=== PATIENT | male | born 1945 | race Two or more races ===

== ENCOUNTER 2019-04-01 10:45 | Emergency (ER) | payer SELFPAY ==
--- NOTE | 2019-04-01 11:32 | ED ---
Respiratory - HPI Summary HPI Summary: Pt is a 74 y/o M presenting to the ED with a chief respiratory complaint. Via disaster or damage control specialist (ID [id number]), pt states hes been coughing up copious amounts of phlegm over the past four days. Hes also developed a low fever, and reports shortness of breath. He did not receive his flu shot this year. He is in stage III renal disease. Patient denies CP except when coughing. Also has sick grandchild. - History of Current Complaint Chief Complaint: EDUpperRespComplaint Stated Complaint: FEVER 102F/COUGH PER DAUGHTER Time Seen by Provider: 04/01/19 10:57 Hx Obtained From: Patient, Family/Manager Athletics, Glue Drier Operator Onset/Duration: Gradual Onset, Lasting Days, Still Present Timing: Constant Initial Severity: Moderate Current Severity: Severe Pain Intensity: 10 Character: Cough (Productive), Dyspnea at Rest Sputum Amount: Copious Aggravating Factor(s): Nothing Alleviating Factor(s): Nothing Associated Signs and Symptoms: Fever, SOB - Allergy/Home Medications Allergies/Adverse Reactions: Allergies Allergy/AdvReac Type Severity Reaction Status Date / Time No Known Allergies Allergy Verified 04/01/19 10:56 PMH/Surg Hx/FS Hx/Imm Hx Previously Healthy: Yes Endocrine/Hematology History: Denies: Hx Diabetes History: Reports: Hx Renal Disease Infectious Disease History: No Infectious Disease History: Reports: Traveled Outside the [place] in Last 30 Days - 03/11 - Family History Known Family History: Negative: Respiratory Disease - Social History Alcohol Use: None Hx Substance Use: No Substance Use Type: Reports: None Hx Tobacco Use: No Smoking Status (MU): Never Smoked Tobacco Review of Systems Positive: Fever Positive: Shortness Of Breath, Cough All Other Systems Reviewed And Are Negative: Yes Physical Exam - Summary Physical Exam Summary: Constitutional: Well-developed, Well-nourished, Alert. (-) Distressed Skin: Warm, Dry HENT: Normocephalic; Atraumatic Eyes: Conjunctiva normal Neck: Musculoskeletal ROM normal neck. (-) JVD, (-) Stridor, (-) Nuchal rigidity Cardio: Rhythm regular, rate normal, Heart sounds normal; Intact distal pulses; Radial pulses are 2+ and symmetric. (-) Murmur Pulmonary/Chest wall: Wet cough, bibasilar rhonchi Abd: Soft, (-) tenderness, (-) Distension, (-) Guarding, (-) Rebound Musculoskeletal: (-) Edema Lymph: (-) Cervical adenopathy Neuro: Alert, Oriented x3 Psych: Mood and affect Normal Triage Information Reviewed: Yes Vital Signs On Initial Exam: Initial Vitals Temp Pulse Resp BP Pulse Ox 99.5 F 90 16 141/76 94 04/01/19 10:53 04/01/19 10:53 04/01/19 10:53 04/01/19 10:53 04/01/19 10:53 Vital Signs Reviewed: Yes Procedures - Sedation Patient Received Moderate/Deep Sedation with Procedure: No Diagnostics - Vital Signs Vital Signs Temp Pulse Resp BP Pulse Ox 04/01/19 10:53 99.5 F 90 16 141/76 94 - Laboratory Result Diagrams: 04/01/19 11:25 04/01/19 11:25 Lab Statement: Any lab studies that have been ordered have been reviewed, and results considered in the medical decision making process. - Radiology CXR Radiology Interpretation Completed By: Radiologist Summary of Radiographic Findings: No active cardiopulmonary disease is noted. ED physician has reviewed this report. - CT Chest CT CT Interpretation Completed By: Radiologist Summary of CT Findings: Pleural parenchymal scarring in the lung apices. Nodular densities are noted in the right upper lobe medially and laterally. Additional nodular density is noted in the left lung base. Although this is in the spectrum of inflammatory or scarring cannot totally exclude neoplastic process. ED physician has reviewed this report. - EKG 1133 Cardiac Rate: NL - 81bpm EKG Rhythm: Sinus Rhythm ST Segment: Normal Ectopy: None Summary of EKG Findings: An EKG at 1133 reveals normal sinus rhythm 81bpm, nml axis, nml intervals. No STEMI. No acute changes. No prior for comparison. ED physician has reviewed and interpreted this EKG. Disposition - Course Course Of Treatment: 74-year-old male with a history of COPD presents with fever , upper respiratory symptoms and cough. - afebrile here, lungs mild rhonchi. Chest x-ray that pneumonia. No leukocytosis on labs. Discussed with daughter who would like to do a CT chest. Patient does have a history of TB. CT chest shows apical scarring as well as some nodules which are consistent with inflammatory process. Patient given Tessalon Perles, albuterol as needed at home to help with his cough. Advised to follow-up with his primary care doctor regarding nodules. O2 sat noted to be 93%, no prior. - Diagnoses Provider Diagnoses: URI (upper respiratory infection) Discharge ED - Sign-Out/Discharge Documenting (check all that apply): Patient Departure - Discharge Plan Condition: Stable Disposition: HOME Prescriptions: Albuterol HFA INHALER* [Ventolin HFA Inhaler*] 2 puff INH Q4H PRN 30 Days #1 mdi PRN Reason: Wheezing Benzonatate CAP* [Tessalon 100 MG CAP*] 100 mg PO TID PRN 8 Days #24 cap PRN Reason: Cough Patient Education Materials: Upper Respiratory Infection (ED) Referrals: Jasmyne Hansen MD [Primary Care Provider] - Additional Instructions: You were seen in the emergency department for cough and fever. Your x-ray did not show any evidence of pneumonia. Your CT scan showed some nodules in her lungs for which you should follow-up with her primary care doctor. Please follow up with your primary care doctor in next 2-3 days and return to emergency department for told breathing, continued fevers, chest pain, worsening or concerning symptoms. It was a pleasure taking care of you today. - Billing Disposition and Condition Condition: STABLE Disposition: Home - Attestation Statements Document Initiated by Lucila: Yes Documenting Scribe: Rocio Alonso Provider For Whom Lucila is Documenting (Include Credential): Lesli Rios MD. Scribe Attestation: Rocio Moore, gwendolyned for Lesli Rios MD. on 04/01/19 at 1745. Scribe Documentation Reviewed: Yes Provider Attestation: The documentation as recorded by the Rocio tamayo accurately reflects the service I personally performed and the decisions made by , Lesli Rios MD. Status of Scribe Document: Viewed
[2019-04-01 11:34] LABS: ABS Eosinophils 0.1 10^3/ul (0-0.6); ABS Lymphocytes 0.7 10^3/ul (1.0-4.8); ABS Monocytes 0.7 10^3/ul (0-0.8); ABS Neutrophils 6.8 10^3/ul (1.5-7.7); Eosinophil % 0.6 %; Hematocrit 32 % (42-52); Hemoglobin 10.9 g/dL (14.0-18.0); Lymphocyte % 8.7 %; Mean Corpuscular HGB Conc 35 g/dL (31-36); Mean Corpuscular Hemoglobin 30 pg (27-31); Mean Corpuscular Volume 87 fL (80-94); Mean Platelet Volume 6.9 fL (7.4-10.4); Platelet Count 290 10^3/uL (150-450); Red Blood Count 3.61 10^6 /uL (4.18-5.48); Red Cell Distribution Width 16 % (10-15); White Blood Count 8.3 10^3/uL (3.5-10.8)
[2019-04-01 11:50] LABS: Influenza A Molecular NEGATIVE (Negative); Influenza B Molecular NEGATIVE (Negative)
[2019-04-01 11:51] LABS: Albumin 2.6 g/dL (3.2-5.2); BUN/Creatinine Ratio 25.8 (8-20); Calcium 8.4 mg/dL (8.6-10.3); EGFR African American 45.7 (>60); EGFR Non-African American 37.8 (>60); Globulin 2.6 g/dL (2-4); Total Bilirubin 0.5 mg/dL (0.2-1.0); Total Protein 5.2 g/dL (6.4-8.9)
[2019-04-01 14:35] VITALS: BP 134/71
== END 2019-04-01 14:33 | disposition home or self-care (01) ==
LOC: ED 10:45
DX: J06.9 Acute upper respiratory infection, unspecified (principal); N18.3 Chronic kidney disease, stage 3 (moderate); J44.9 Chronic obstructive pulmonary disease, unspecified
CPT/HCPCS: 36415; 71046; 71250; 80053; 85025; 93005; 99284

== ENCOUNTER 2019-04-04 16:56 | Emergency (ER) | payer SELFPAY ==
[2019-04-04 17:13] VITALS: BP 151/74
[2019-04-04] MEDS ORDERED: Albuterol/Ipratropium NEB.SOL* Albuterol 2.5 MG/Ipratropium 0.5 MG 3 ML INH ONE ×2 (17:20→18:00)
--- NOTE | 2019-04-04 17:57 | UC ---
Respiratory Complaint HPI - HPI Summary HPI Summary: 74-year-old male who has had cough for approximately 5 days. He had a high fever for 103 and went to the emergency room on Tuesday. Chest x-ray was done which was negative for infiltrate. He is on low-dose prednisone 10 mg daily last week and 5 mg daily this week because of renal disease. He was given an inhaler and he has been using that. Tonight he has more wheezing and moist cough. His daughter wanted him to be checked because her daughter was just diagnosed with pneumonia. Today he has started experiencing some right ear pain. - History of Current Complaint Chief Complaint: UCRespiratory Stated Complaint: COUGH Time Seen by Provider: 04/04/19 17:14 Hx Obtained From: Patient, Family/Locomotive Engineer Diesel - The daughter is acting as the interpreter translator for the patient who speaks Maltese. Onset/Duration: Gradual Onset Timing: Constant Severity Initially: Moderate Severity Currently: Mild Pain Intensity: 9 Character: Cough: Nonproductive - Moist cough Aggravating Factors: Exertion, Deep Breaths Alleviating Factors: Bronchodilator - The albuterol inhaler has been helping mildly. He was also given benzonatate in the emergency room. Associated Signs And Symptoms: Positive: Fever - He had a fever as high as 103 over the weekend., Wheezing - Today he has continued wheezing., URI, Nasal Congestion - Allergies/Home Medications Allergies/Adverse Reactions: Allergies Allergy/AdvReac Type Severity Reaction Status Date / Time No Known Allergies Allergy Verified 04/04/19 17:13 Home Medications: Home Medications Acetaminophen TAB* [Tylenol TAB*] 500 mg PO Q4H PRN 04/04/19 [History Confirmed 04/04/19] PMH/Surg Hx/FS Hx/Imm Hx Previously Healthy: Yes GI/ History: Renal Disease - Recently diagnosed with renal disease. - Surgical History Surgical History: Yes Surgery Procedure, Year, and Place: lung surgery - Family History Known Family History: Negative: Respiratory Disease - Social History Alcohol Use: None Substance Use Type: None Smoking Status (MU): Former Smoker When Did the Patient Quit Smoking/Using Tobacco: [id number] Review of Systems All Other Systems Reviewed And Are Negative: Yes Constitutional: Positive: Fever, Chills - Fever and chills over the weekend when he was seen in the emergency room. ENT: Positive: Ear Ache - Patient has complained of right earache today Respiratory: Positive: Cough - Moist cough with wheezing today Is Patient Immunocompromised?: No Physical Exam Triage Information Reviewed: Yes Appearance: Well-Appearing, No Pain Distress, Well-Nourished Vital Signs: Initial Vital Signs Temp 99.4 F 04/04/19 17:07 Pulse 93 04/04/19 17:07 Resp 18 04/04/19 17:07 BP 151/74 04/04/19 17:07 Pulse Ox 94 04/04/19 17:07 Vital Signs Reviewed: Yes Eyes: Positive: Conjunctiva Clear ENT: Positive: Hearing grossly normal, Pharynx normal, TM red - Left tympanic membrane unable to visualize because of cerumen in ear canal. Right tympanic membrane is erythematous with mild bulging and poor landmarks., Uvula midline Neck: Positive: Supple, Nontender, No Lymphadenopathy Respiratory: Positive: No respiratory distress, No accessory muscle use, Rhonchi , Wheezing - Scattered rhonchi and wheezing throughout, no distress. Cardiovascular: Positive: RRR, No Murmur, Pulses Normal, Brisk Capillary Refill Musculoskeletal: Positive: Strength Intact, ROM Intact, Other: - Patient has bilateral pedal and ankle edema which is chronic for this patient. Neurological: Positive: Alert Psychological Exam: Normal Skin Exam: Normal Respiratory Course/Dx - Course Course Of Treatment: The patient just had a chest x-ray 3 days ago which was negative. He had been placed on an albuterol inhaler, he is also on low-dose prednisone because of his renal disease of 5 mg daily. Last week he was on 10 mg daily. I want him to continue all these medications however I am going to add Augmentin for the right otitis media and did adjust it because of his renal impairment. The patient had a DuoNeb treatment here and he stated that he was feeling like he was moving better air. His lungs were much improved with only mild wheezing with forced expiration and no rhonchi. He continues to have a moist cough but no distress. He requested another DuoNeb treatment. He feels much better following that and has almost complete clearing of his lung steele, he even appears like he is feeling better. - Differential Dx/Diagnosis Provider Diagnosis: Right otitis media, Bronchitis Discharge ED - Sign-Out/Discharge Documenting (check all that apply): Patient Departure All imaging exams completed and their final reports reviewed: No Studies - Discharge Plan Condition: Fair Disposition: HOME Prescriptions: Amoxicillin/Clavulanate TAB* [Augmentin TAB 500 mg*] 500 mg PO BID 10 Days #20 tab Patient Education Materials: Ear Infection (ED) Referrals: Jasmyne Hansen MD [Primary Care Provider] - Additional Instructions: Continue using your albuterol inhaler 2 puffs every 4 hours as needed for wheezing. Contact your primary care provider and advised them that you have been started on Augmentin 500 mg twice a day for 10 days for a right ear infection. Follow-up with your primary care provider on Tuesday for a recheck if no improvement, if any worsening symptoms coming into the weekend then go to the emergency room. - Billing Disposition and Condition Condition: FAIR Disposition: Home
== END 2019-04-04 18:18 | disposition home or self-care (01) ==
LOC: UCEAST 16:56
DX: H66.91 Otitis media, unspecified, right ear (principal); J40 Bronchitis, not specified as acute or chronic; Z87.891 Personal history of nicotine dependence
CPT/HCPCS: 99213; A9270-GY; G0463

== ENCOUNTER 2019-07-22 10:14 | Inpatient (IN) | payer SELFPAY ==
[2019-07-22] MEDS ORDERED: NS 0.9% 1000 ml BAG 1,000 ML IV ONE ×2 (10:28→14:20)
[2019-07-22] MEDS ORDERED: Ondansetron 4 mg VIAL 2 MG/ML 2 ml VIAL IV ONE (11:30)
[2019-07-22] MEDS ORDERED: Morphine 4 MG/ML VIAL (1 ml) IV ONE (11:30)
[2019-07-22 11:47] LABS: ABS Eosinophils 0.6 10^3/ul (0-0.6); ABS Lymphocytes 1.5 10^3/ul (1.0-4.8); ABS Monocytes 0.4 10^3/ul (0-0.8); Eosinophil % 10.8 %; Hematocrit 34 % (42-52); Hemoglobin 11.3 g/dL (14.0-18.0); Lymphocyte % 27.1 %; Mean Corpuscular HGB Conc 33 g/dL (31-36); Mean Corpuscular Hemoglobin 28 pg (27-31); Mean Corpuscular Volume 85 fL (80-94); Mean Platelet Volume 7.2 fL (7.4-10.4); Platelet Count 264 10^3/uL (150-450); Red Blood Count 4.02 10^6 /uL (4.18-5.48); Red Cell Distribution Width 16 % (10-15); White Blood Count 5.6 10^3/uL (3.5-10.8)
[2019-07-22 11:51] LABS: Urine Appearance Clear; Urine Bilirubin Negative (Negative); Urine Blood Negative (Negative); Urine Color Straw; Urine Glucose Negative (Negative); Urine Ketones Negative (Negative); Urine Nitrite Negative (Negative); Urine Protein 2+(100 mg/dL) (Negative); Urine Specific Gravity 1.011 (1.010-1.030); Urine Urobilinogen Negative (Negative)
[2019-07-22 11:54] LABS: Urine Bacteria Absent (Absent); Urine Red Blood Cell Trace(0-2/hpf) (Absent); Urine White Blood Cell Trace(0-5/hpf) (Absent)
[2019-07-22 12:06] LABS: Albumin 3.2 g/dL (3.2-5.2); Albumin/Globulin Ratio 1.2 (1-3); BUN/Creatinine Ratio 21.4 (8-20); C Reactive Protein 13.13 mg/L (<8.01); Calcium 8.8 mg/dL (8.6-10.3); EGFR African American 44.5 (>60); EGFR Non-African American 36.8 (>60); Globulin 2.6 g/dL (2-4); Potassium 4.3 mmol/L (3.5-5.0); Total Bilirubin 0.4 mg/dL (0.2-1.0); Total Protein 5.8 g/dL (6.4-8.9)
[2019-07-22] MEDS ORDERED: metroNIDAZOLE IV 500 MG/100ML 500 MG/100 ML BAG IVPB ONE (14:23)
[2019-07-22] MEDS ORDERED: cefTRIAXone ADVAN VIAL 1 GM in NS 0.9% 50 ML 50 ML IVPB ONE (14:23)
[2019-07-22 15:07] LABS: Activated Partial Thrombo Time 36.2 seconds (26.0-38.0); INR 0.94 (0.82-1.09)
[2019-07-22 15:23] LABS: Troponin I 0.01 ng/mL (<0.03)
[2019-07-22] MEDS ORDERED: Prochlorperazine 5 mg/ml 2 ml VIAL (10 mg) IV PRN (16:02)
[2019-07-22] MEDS: NS 0.9% 1000 ml BAG 1,000 ML IV SCH (17:53)
[2019-07-22] MEDS: Heparin 5000 UNITS/ML VIAL(*) 1 ml vial SUBCUT SCH (21:10)
[2019-07-22] MEDS: metroNIDAZOLE IV 500 MG/100ML 500 MG/100 ML BAG IVPB SCH (21:11)
[2019-07-23] MEDS: Morphine 2 MG/ML SYRINGE IV PRN ×2 (00:22→07:28)
[2019-07-23] MEDS: metroNIDAZOLE IV 500 MG/100ML 500 MG/100 ML BAG IVPB SCH ×3 (05:35→21:19)
[2019-07-23] MEDS: Heparin 5000 UNITS/ML VIAL(*) 1 ml vial SUBCUT SCH ×3 (05:36→21:25)
[2019-07-23 06:50] LABS: ABS Eosinophils 0.6 10^3/ul (0-0.6); ABS Lymphocytes 1.2 10^3/ul (1.0-4.8); ABS Monocytes 0.3 10^3/ul (0-0.8); Eosinophil % 15.7 %; Hematocrit 28 % (42-52); Hemoglobin 9.7 g/dL (14.0-18.0); Mean Corpuscular HGB Conc 34 g/dL (31-36); Mean Corpuscular Hemoglobin 29 pg (27-31); Mean Corpuscular Volume 84 fL (80-94); Mean Platelet Volume 7.4 fL (7.4-10.4); Platelet Count 236 10^3/uL (150-450); Red Blood Count 3.39 10^6 /uL (4.18-5.48); Red Cell Distribution Width 16 % (10-15)
[2019-07-23 07:04] LABS: Albumin 2.5 g/dL (3.2-5.2); Albumin/Globulin Ratio 1.1 (1-3); BUN/Creatinine Ratio 16.7 (8-20); C Reactive Protein 19.52 mg/L (<8.01); Calcium 7.6 mg/dL (8.6-10.3); EGFR African American 50.9 (>60); EGFR Non-African American 42.1 (>60); Globulin 2.3 g/dL (2-4); Potassium 3.9 mmol/L (3.5-5.0); Total Bilirubin 0.4 mg/dL (0.2-1.0); Total Protein 4.8 g/dL (6.4-8.9)
[2019-07-23] MEDS: NS 0.9% 1000 ml BAG 1,000 ML IV SCH (07:28)
[2019-07-23] MEDS ORDERED: cefTRIAXone ADVAN VIAL 1 GM in NS 0.9% 50 ML 50 ML IVPB SCH (16:00)
[2019-07-23] MEDS ORDERED: NS 0.9% 1000 ml BAG 1,000 ML IV SCH (19:15)
[2019-07-24] MEDS: metroNIDAZOLE IV 500 MG/100ML 500 MG/100 ML BAG IVPB SCH (05:35)
[2019-07-24] MEDS ORDERED: Buffered Lidocaine 1% SYRIN 1 ml INTRADERM ONE (06:00)
[2019-07-24] MEDS ORDERED: Famotidine IV 10 MG/ML 2 ml VIAL (20 mg) IV ONE (06:00)
[2019-07-24 06:23] LABS: ABS Eosinophils 0.6 10^3/ul (0-0.6); ABS Lymphocytes 1.2 10^3/ul (1.0-4.8); ABS Monocytes 0.3 10^3/ul (0-0.8); Eosinophil % 15.3 %; Hematocrit 30 % (42-52); Lymphocyte % 29.8 %; Mean Corpuscular HGB Conc 34 g/dL (31-36); Mean Corpuscular Hemoglobin 28 pg (27-31); Mean Corpuscular Volume 84 fL (80-94); Mean Platelet Volume 7.3 fL (7.4-10.4); Nucleated Red Blood Cells % 0.2; Platelet Count 252 10^3/uL (150-450); Red Blood Count 3.53 10^6 /uL (4.18-5.48); Red Cell Distribution Width 15 % (10-15); White Blood Count 4.2 10^3/uL (3.5-10.8)
[2019-07-24 06:29] LABS: INR 1.06 (0.82-1.09)
[2019-07-24 06:38] LABS: BUN/Creatinine Ratio 13.1 (8-20); Calcium 8.2 mg/dL (8.6-10.3); EGFR African American 51.7 (>60); EGFR Non-African American 42.7 (>60); Potassium 3.7 mmol/L (3.5-5.0)
[2019-07-24] MEDS ORDERED: HYDROmorphone 1 MG/1 ML SYRINGE IV PRN (07:56)
[2019-07-24] MEDS ORDERED: Ondansetron 4 mg VIAL 2 MG/ML 2 ml VIAL IV PRN (07:56)
[2019-07-24] MEDS ORDERED: DiMENhydriNATE IV 50 mg/ml 1 ml VIAL IV PUSH PRN (07:56)
[2019-07-24] MEDS ORDERED: Naloxone 0.4 mg VIAL 0.4 mg/ml 1 ml VIAL IV PRN (07:56)
[2019-07-24] MEDS ORDERED: fentaNYL 100 mcg/2 ml 50 MCG/ML VIAL IV PRN (07:56)
[2019-07-24] MEDS ORDERED: Bupivacaine 0.25% EPI 200,000 30 ML SDV ONE (08:41)
[2019-07-24] MEDS ORDERED: Ondansetron ODT 4 mg TAB 4 MG TAB ONE (09:16)
[2019-07-24] MEDS ORDERED: Famotidine IV 10 MG/ML 2 ml VIAL (20 mg) ONE (09:16)
[2019-07-24] MEDS ORDERED: Midazolam 2 mg/2 ml VIAL 1 mg/ml 2 ml VIAL (2 mg) ONE (09:37)
[2019-07-24] MEDS ORDERED: fentaNYL 100 mcg/2 ml 50 MCG/ML VIAL ONE ×2 (09:37→12:10)
[2019-07-24] MEDS ORDERED: Ketamine HCL 50 mg/ml 10 ml VIAL (500 MG) ONE (09:37)
[2019-07-24] MEDS ORDERED: Rocuronium 50 mg VIAL 10 mg/ml 5 ml VIAL (50 mg) ONE (09:39)
[2019-07-24] MEDS ORDERED: Sugammadex 500 MG/5 ML 5 ml VIAL IV PUSH ONE (09:39)
[2019-07-24] MEDS ORDERED: ceFAZolin 2 GM PREMIX in ORs 2 GM/50 ML BAG (FOR ORs ONLY) ONE (09:48)
[2019-07-24] MEDS ORDERED: Acetaminophen IV 1 GM/100ML 100 ML ONE (10:35)
[2019-07-24] MEDS ORDERED: Lidocaine 2% PF 5 ML VIAL ONE (10:35)
[2019-07-24] MEDS ORDERED: Propofol 10 MG/ML 20 ML BTL ONE (10:35)
[2019-07-24] MEDS ORDERED: HYDROmorphone 1 MG/1 ML SYRINGE ONE (10:35)
[2019-07-24] MEDS ORDERED: EPHEDrine (Pressors) 50 MG/ML VIAL ONE (10:35)
[2019-07-24] MEDS ORDERED: Metoprolol Tartrate 5 mg VIAL 5 ml VIAL (1 mg/ml) ONE (11:08)
[2019-07-24] MEDS ORDERED: Ondansetron 4 mg VIAL 2 MG/ML 2 ml VIAL ONE (12:48)
[2019-07-24 14:46] VITALS: BP 116/64
== END 2019-07-24 14:30 | disposition home or self-care (01) | DRG 418 ==
LOC: ED 10:14 → SSU 14:41 → OBSVTOIN 07-23 15:41
PROVIDERS: ADMIT Internal Medicine; ATTEND Internal Medicine

== ENCOUNTER 2021-09-12 08:00 | Observation (INO) ==
[2021-09-12 08:28] LABS: ABS Eosinophils 0.5 10^3/ul (0-0.6); ABS Lymphocytes 1.4 10^3/ul (1.0-4.8); ABS Monocytes 0.3 10^3/ul (0-0.8); ABS Neutrophils 2.4 10^3/ul (1.5-7.7); Eosinophil % 10.3 %; Hematocrit 30 % (42-52); Hemoglobin 9.7 g/dL (14.0-18.0); Lymphocyte % 29.8 %; Mean Corpuscular HGB Conc 33 g/dL (31-36); Mean Corpuscular Hemoglobin 28 pg (27-31); Mean Corpuscular Volume 86 fL (80-94); Mean Platelet Volume 7.3 fL (7.4-10.4); Nucleated Red Blood Cells % 0.1; Platelet Count 288 10^3/uL (150-450); Red Blood Count 3.44 10^6 /uL (4.18-5.48); Red Cell Distribution Width 15 % (10-15); White Blood Count 4.5 10^3/uL (3.5-10.8)
[2021-09-12 08:36] LABS: INR 0.99 (0.86-1.15)
[2021-09-12 09:27] LABS: Albumin 3.3 g/dL (3.2-5.2); Albumin/Globulin Ratio 1.3 (1-3); Calcium 8.7 mg/dL (8.6-10.3); Globulin 2.5 g/dL (2-4); Total Bilirubin 0.4 mg/dL (0.2-1.0); Total Protein 5.8 g/dL (6.4-8.9); eGFR CKD-EPI 11.5 (>60)
[2021-09-12 09:59] LABS: High Sensitivity Troponin 1 Hr 7 pg/mL (<20)
[2021-09-12] MEDS ORDERED: Al Hydrox/Mg Hydrox/Simet LIQ 30 ML UDC PO ONE (12:04)
[2021-09-12] MEDS ORDERED: Al Hydrox/Mg Hydrox/Simet LIQ 30 ML UDC PO PRN (15:06)
[2021-09-12] MEDS: Heparin 5000 UNITS/ML 1 mL VIAL SUBCUT SCH (20:28)
[2021-09-13 06:38] LABS: ABS Eosinophils 0.4 10^3/ul (0-0.6); ABS Lymphocytes 1.3 10^3/ul (1.0-4.8); ABS Monocytes 0.3 10^3/ul (0-0.8); ABS Neutrophils 1.7 10^3/ul (1.5-7.7); Eosinophil % 10.6 %; Hematocrit 26 % (42-52); Hemoglobin 8.8 g/dL (14.0-18.0); Lymphocyte % 36.4 %; Mean Corpuscular HGB Conc 34 g/dL (31-36); Mean Corpuscular Hemoglobin 29 pg (27-31); Mean Corpuscular Volume 86 fL (80-94); Mean Platelet Volume 7.5 fL (7.4-10.4); Platelet Count 253 10^3/uL (150-450); Red Blood Count 3.04 10^6 /uL (4.18-5.48); Red Cell Distribution Width 15 % (10-15); White Blood Count 3.7 10^3/uL (3.5-10.8)
[2021-09-13 07:17] LABS: Calcium 7.9 mg/dL (8.6-10.3); HDL Cholesterol 34.9 mg/dL; Potassium 4.2 mmol/L (3.5-5.0); eGFR CKD-EPI 11.1 (>60)
[2021-09-13] MEDS: Potassium Chlor 20 meq TAB.ER PO SCH (09:56)
[2021-09-13] MEDS: Heparin 5000 UNITS/ML 1 mL VIAL SUBCUT SCH ×2 (09:58→21:00)
[2021-09-14 09:33] LABS: Phosphorus 5.6 mg/dL (2.5-5.0)
[2021-09-14] MEDS: Heparin 5000 UNITS/ML 1 mL VIAL SUBCUT SCH (11:52)
[2021-09-14] MEDS: Potassium Chlor 20 meq TAB.ER PO SCH (11:53)
[2021-09-14] MEDS ORDERED: Regadenoson 0.4 MG/5 ML SYRINGE ONE (12:30)
[2021-09-14 12:34] VITALS: BP 132/54
== END 2021-09-14 16:25 | disposition home or self-care (01) ==
LOC: ED 08:00 → EDHOLD 08:00 → MEDTELE 16:40
PROVIDERS: ADMIT Student in an Organized Health Care Education/Training Program; ATTEND Student in an Organized Health Care Education/Training Program

== ENCOUNTER 2022-01-07 17:31 | Inpatient (IN) ==
[2022-01-07 20:26] LABS: ABS Eosinophils 0.4 10^3/ul (0-0.6); ABS Lymphocytes 1.1 10^3/ul (1.0-4.8); ABS Monocytes 0.4 10^3/ul (0-0.8); ABS Neutrophils 2.2 10^3/ul (1.5-7.7); Eosinophil % 8.6 %; Hematocrit 32 % (42-52); Hemoglobin 10.3 g/dL (14.0-18.0); Lymphocyte % 26.7 %; Mean Corpuscular HGB Conc 32 g/dL (31-36); Mean Corpuscular Hemoglobin 27 pg (27-31); Mean Corpuscular Volume 85 fL (80-94); Mean Platelet Volume 7.4 fL (7.4-10.4); Platelet Count 238 10^3/uL (150-450); Red Cell Distribution Width 16 % (10-15); White Blood Count 4.1 10^3/uL (3.5-10.8)
[2022-01-07 20:38] LABS: Activated Partial Thrombo Time 34.7 seconds (26.0-38.0); INR 0.93 (0.89-1.11)
[2022-01-07 21:17] LABS: Albumin 3.5 g/dL (3.2-5.2); Albumin/Globulin Ratio 1.3 (1-3); C Reactive Protein 2.39 mg/L (<8.01); Calcium 8.4 mg/dL (8.6-10.3); Globulin 2.7 g/dL (2-4); Magnesium 2.7 mg/dL (1.9-2.7); Total Bilirubin 0.3 mg/dL (0.2-1.0); Total Protein 6.2 g/dL (6.4-8.9); eGFR CKD-EPI 7.4 (>60)
[2022-01-08] MEDS ORDERED: Potassium Chlor 20 meq TAB.ER PO ONE (01:32)
[2022-01-08 07:10] LABS: Hepatitis B Surface Antigen Nonreactive (Nonreactive)
[2022-01-08 07:15] LABS: Hepatitis B Core IgM Nonreactive (Nonreactive)
[2022-01-08 07:27] LABS: Hepatitis B Surface Ab Immune (Immune)
[2022-01-08 08:11] LABS: ABS Eosinophils 0.5 10^3/ul (0-0.6); ABS Lymphocytes 0.9 10^3/ul (1.0-4.8); ABS Monocytes 0.3 10^3/ul (0-0.8); ABS Neutrophils 2.3 10^3/ul (1.5-7.7); Eosinophil % 11.5 %; Hematocrit 30 % (42-52); Hemoglobin 9.9 g/dL (14.0-18.0); Lymphocyte % 21.9 %; Mean Corpuscular HGB Conc 33 g/dL (31-36); Mean Corpuscular Hemoglobin 28 pg (27-31); Mean Corpuscular Volume 84 fL (80-94); Mean Platelet Volume 7.8 fL (7.4-10.4); Nucleated Red Blood Cells % 0.1; Platelet Count 247 10^3/uL (150-450); Red Blood Count 3.58 10^6 /uL (4.18-5.48); Red Cell Distribution Width 16 % (10-15)
[2022-01-08] MEDS: Potassium Chlor 20 meq TAB.ER PO SCH ×2 (08:14→21:40)
[2022-01-08] MEDS: Enoxaparin 30 MG/0.3 ML SYR SUBCUT SCH (08:19)
[2022-01-08 08:50] LABS: Albumin 3.2 g/dL (3.2-5.2); Albumin/Globulin Ratio 1.3 (1-3); Calcium 8.5 mg/dL (8.6-10.3); Globulin 2.4 g/dL (2-4); Total Bilirubin 0.4 mg/dL (0.2-1.0); Total Protein 5.6 g/dL (6.4-8.9); eGFR CKD-EPI 7.5 (>60)
[2022-01-08] MEDS: Heparin 1,000 UNIT/ML 10 ml (10,000 UNITS) CATHLAB/DIALYSIS DIALYSIS ONE ×2 (11:04→12:05)
[2022-01-08 11:21] LABS: Hepatitis B Surface Antigen Nonreactive (Nonreactive)
[2022-01-09] MEDS: Enoxaparin 30 MG/0.3 ML SYR SUBCUT SCH (06:33)
[2022-01-09 07:21] LABS: Albumin/Globulin Ratio 1.4 (1-3); Calcium 8.2 mg/dL (8.6-10.3); Globulin 2.2 g/dL (2-4); Potassium 4.2 mmol/L (3.5-5.0); Total Bilirubin 0.3 mg/dL (0.2-1.0); Total Protein 5.2 g/dL (6.4-8.9); eGFR CKD-EPI 8.5 (>60)
[2022-01-09] MEDS: Potassium Chlor 20 meq TAB.ER PO SCH (09:36)
[2022-01-09] MEDS: Heparin 1,000 UNIT/ML 10 ml (10,000 UNITS) CATHLAB/DIALYSIS DIALYSIS ONE ×3 (13:05→15:10)
[2022-01-10] MEDS: Enoxaparin 30 MG/0.3 ML SYR SUBCUT SCH (05:49)
[2022-01-10 06:55] LABS: Hematocrit 28 % (42-52); Hemoglobin 9.3 g/dL (14.0-18.0); Mean Corpuscular HGB Conc 33 g/dL (31-36); Mean Corpuscular Hemoglobin 29 pg (27-31); Mean Corpuscular Volume 87 fL (80-94); Mean Platelet Volume 7.8 fL (7.4-10.4); Platelet Count 236 10^3/uL (150-450); Red Blood Count 3.25 10^6 /uL (4.18-5.48); Red Cell Distribution Width 16 % (10-15)
[2022-01-10 07:07] LABS: Calcium 8.4 mg/dL (8.6-10.3); Magnesium 2.1 mg/dL (1.9-2.7); Potassium 4.1 mmol/L (3.5-5.0); eGFR CKD-EPI 9.8 (>60)
[2022-01-10] MEDS ORDERED: Influenza vaccine *QUAD* *2022-23* 0.5 ML SYRINGE IM ONE (09:00)
[2022-01-11] MEDS: Enoxaparin 30 MG/0.3 ML SYR SUBCUT SCH (05:41)
[2022-01-11 06:24] LABS: Calcium 8.3 mg/dL (8.6-10.3); Potassium 3.5 mmol/L (3.5-5.0); eGFR CKD-EPI 8.2 (>60)
[2022-01-11] MEDS: Heparin 1,000 UNIT/ML 10 ml (10,000 UNITS) CATHLAB/DIALYSIS DIALYSIS SCH ×3 (07:20→09:25)
[2022-01-12] MEDS: Enoxaparin 30 MG/0.3 ML SYR SUBCUT SCH (06:33)
[2022-01-12 07:27] LABS: Calcium 8.7 mg/dL (8.6-10.3); Potassium 4.8 mmol/L (3.5-5.0); eGFR CKD-EPI 8.8 (>60)
[2022-01-12 10:53] LABS: Hematocrit 31 % (42-52); Hemoglobin 10.1 g/dL (14.0-18.0); Mean Corpuscular HGB Conc 32 g/dL (31-36); Mean Corpuscular Hemoglobin 28 pg (27-31); Mean Corpuscular Volume 85 fL (80-94); Mean Platelet Volume 7.7 fL (7.4-10.4); Platelet Count 277 10^3/uL (150-450); Red Blood Count 3.66 10^6 /uL (4.18-5.48); Red Cell Distribution Width 16 % (10-15); White Blood Count 6.3 10^3/uL (3.5-10.8)
[2022-01-13 05:11] LABS: ABS Eosinophils 0.5 10^3/ul (0-0.6); ABS Lymphocytes 1.6 10^3/ul (1.0-4.8); ABS Monocytes 0.6 10^3/ul (0-0.8); ABS Neutrophils 3.6 10^3/ul (1.5-7.7); Eosinophil % 8.5 %; Hematocrit 29 % (42-52); Hemoglobin 9.3 g/dL (14.0-18.0); Lymphocyte % 25.4 %; Mean Corpuscular HGB Conc 32 g/dL (31-36); Mean Corpuscular Hemoglobin 28 pg (27-31); Mean Corpuscular Volume 86 fL (80-94); Mean Platelet Volume 7.6 fL (7.4-10.4); Platelet Count 270 10^3/uL (150-450); Red Blood Count 3.34 10^6 /uL (4.18-5.48); Red Cell Distribution Width 16 % (10-15); White Blood Count 6.4 10^3/uL (3.5-10.8)
[2022-01-13 05:34] LABS: Albumin 3.2 g/dL (3.2-5.2); Albumin/Globulin Ratio 1.3 (1-3); Calcium 8.1 mg/dL (8.6-10.3); Globulin 2.4 g/dL (2-4); Potassium 4.6 mmol/L (3.5-5.0); Total Bilirubin 0.3 mg/dL (0.2-1.0); Total Protein 5.6 g/dL (6.4-8.9)
[2022-01-13] MEDS: Enoxaparin 30 MG/0.3 ML SYR SUBCUT SCH (05:36)
[2022-01-13] MEDS: Pentafluoroprop/Tetrafluoro 1 SPRAY TOP.SPRAY TOPICAL SCH (09:45)
[2022-01-13] MEDS: Heparin 1,000 UNIT/ML 10 ml (10,000 UNITS) CATHLAB/DIALYSIS DIALYSIS SCH ×4 (09:45→12:38)
[2022-01-14] MEDS: Enoxaparin 30 MG/0.3 ML SYR SUBCUT SCH (05:54)
[2022-01-14 06:23] LABS: Calcium 8.4 mg/dL (8.6-10.3); Magnesium 2.1 mg/dL (1.9-2.7); eGFR CKD-EPI 8.4 (>60)
[2022-01-14 06:27] LABS: Potassium 5.4 mmol/L (3.5-5.0)
[2022-01-14] MEDS ORDERED: SODIUM ZIRCONIUM CYCLOSILICATE 5 GM PACKET PO SCH (09:00)
[2022-01-14] MEDS ORDERED: SODIUM ZIRCONIUM CYCLOSILICATE 5 GM PACKET PO ONE ×2 (09:45→12:00)
[2022-01-14] MEDS ORDERED: Heparin 1,000 UNIT/ML 10 ml (10,000 UNITS) CATHLAB/DIALYSIS DIALYSIS ONE (16:00)
[2022-01-15] MEDS ORDERED: Calcium Carb (TUMS) 500 mg CHEW TAB PO ONE ×2 (01:00→09:40)
[2022-01-15] MEDS: Enoxaparin 30 MG/0.3 ML SYR SUBCUT SCH (05:49)
[2022-01-15 06:33] LABS: ABS Eosinophils 0.4 10^3/ul (0-0.6); ABS Lymphocytes 1.4 10^3/ul (1.0-4.8); ABS Monocytes 0.5 10^3/ul (0-0.8); ABS Neutrophils 3.2 10^3/ul (1.5-7.7); Eosinophil % 7.2 %; Hematocrit 26 % (42-52); Hemoglobin 8.6 g/dL (14.0-18.0); Lymphocyte % 25.3 %; Mean Corpuscular HGB Conc 33 g/dL (31-36); Mean Corpuscular Hemoglobin 28 pg (27-31); Mean Corpuscular Volume 85 fL (80-94); Mean Platelet Volume 7.6 fL (7.4-10.4); Platelet Count 266 10^3/uL (150-450); Red Blood Count 3.07 10^6 /uL (4.18-5.48); Red Cell Distribution Width 16 % (10-15); White Blood Count 5.4 10^3/uL (3.5-10.8)
[2022-01-15 06:54] LABS: Calcium 8.1 mg/dL (8.6-10.3); Magnesium 2.2 mg/dL (1.9-2.7); Potassium 4.5 mmol/L (3.5-5.0); eGFR CKD-EPI 6.9 (>60)
[2022-01-15] MEDS: Pentafluoroprop/Tetrafluoro 1 SPRAY TOP.SPRAY TOPICAL SCH (13:40)
[2022-01-15] MEDS: Heparin 1,000 UNIT/ML 10 ml (10,000 UNITS) CATHLAB/DIALYSIS DIALYSIS SCH ×3 (13:45→15:40)
[2022-01-16 06:06] LABS: ABS Eosinophils 0.2 10^3/ul (0-0.6); ABS Lymphocytes 1.2 10^3/ul (1.0-4.8); ABS Monocytes 0.5 10^3/ul (0-0.8); ABS Neutrophils 3.1 10^3/ul (1.5-7.7); Eosinophil % 4.6 %; Hematocrit 31 % (42-52); Hemoglobin 10.1 g/dL (14.0-18.0); Lymphocyte % 23.5 %; Mean Corpuscular HGB Conc 33 g/dL (31-36); Mean Corpuscular Hemoglobin 28 pg (27-31); Mean Corpuscular Volume 85 fL (80-94); Mean Platelet Volume 7.1 fL (7.4-10.4); Platelet Count 292 10^3/uL (150-450); Red Cell Distribution Width 17 % (10-15); White Blood Count 5.1 10^3/uL (3.5-10.8)
[2022-01-16] MEDS: Enoxaparin 30 MG/0.3 ML SYR SUBCUT SCH (06:20)
[2022-01-16 06:30] LABS: Magnesium 2.2 mg/dL (1.9-2.7); Potassium 4.8 mmol/L (3.5-5.0); eGFR CKD-EPI 9.5 (>60)
[2022-01-16 11:43] LABS: TB1 Ag minus Nil Result 0.39 IU/mL
[2022-01-16 11:45] LABS: QuantiferonTb Gold Plus Result Positive (Negative)
[2022-01-16] MEDS ORDERED: Benzocaine/Menthol LOZ PO PRN (11:55)
[2022-01-17] MEDS: Enoxaparin 30 MG/0.3 ML SYR SUBCUT SCH (05:15)
[2022-01-17 06:00] LABS: ABS Eosinophils 0.4 10^3/ul (0-0.6); ABS Lymphocytes 1.6 10^3/ul (1.0-4.8); ABS Monocytes 0.7 10^3/ul (0-0.8); ABS Neutrophils 3.4 10^3/ul (1.5-7.7); Eosinophil % 6.8 %; Hematocrit 28 % (42-52); Hemoglobin 9.1 g/dL (14.0-18.0); Lymphocyte % 26.4 %; Mean Corpuscular HGB Conc 33 g/dL (31-36); Mean Corpuscular Hemoglobin 28 pg (27-31); Mean Corpuscular Volume 85 fL (80-94); Nucleated Red Blood Cells % 0.1; Platelet Count 273 10^3/uL (150-450); Red Blood Count 3.23 10^6 /uL (4.18-5.48); Red Cell Distribution Width 16 % (10-15); White Blood Count 6.2 10^3/uL (3.5-10.8)
[2022-01-17 06:17] LABS: Calcium 8.4 mg/dL (8.6-10.3); Magnesium 2.3 mg/dL (1.9-2.7); eGFR CKD-EPI 7.2 (>60)
[2022-01-17 06:26] LABS: Potassium 5.5 mmol/L (3.5-5.0)
[2022-01-17] MEDS ORDERED: SODIUM ZIRCONIUM CYCLOSILICATE 5 GM PACKET PO ONE (07:10)
[2022-01-18] MEDS: Enoxaparin 30 MG/0.3 ML SYR SUBCUT SCH (05:42)
[2022-01-18 06:49] LABS: ABS Eosinophils 0.3 10^3/ul (0-0.6); ABS Lymphocytes 1.3 10^3/ul (1.0-4.8); ABS Monocytes 0.5 10^3/ul (0-0.8); ABS Neutrophils 2.8 10^3/ul (1.5-7.7); Eosinophil % 6.4 %; Hematocrit 30 % (42-52); Hemoglobin 9.7 g/dL (14.0-18.0); Lymphocyte % 26.6 %; Mean Corpuscular HGB Conc 33 g/dL (31-36); Mean Corpuscular Hemoglobin 28 pg (27-31); Mean Corpuscular Volume 85 fL (80-94); Mean Platelet Volume 7.3 fL (7.4-10.4); Platelet Count 284 10^3/uL (150-450); Red Cell Distribution Width 16 % (10-15)
[2022-01-18 07:07] LABS: Calcium 8.5 mg/dL (8.6-10.3); Magnesium 2.3 mg/dL (1.9-2.7); Potassium 4.3 mmol/L (3.5-5.0); eGFR CKD-EPI 5.8 (>60)
[2022-01-18] MEDS: Heparin 1,000 UNIT/ML 10 ml (10,000 UNITS) CATHLAB/DIALYSIS DIALYSIS SCH ×2 (14:50→15:54)
[2022-01-18] MEDS: Pentafluoroprop/Tetrafluoro 1 SPRAY TOP.SPRAY TOPICAL SCH (15:03)
[2022-01-18] MEDS: Heparin 1,000 UNIT/ML 10 ml (10,000 UNITS) CATHLAB/DIALYSIS DIALYSIS PRN ×2 (17:01→17:52)
[2022-01-19] MEDS: Enoxaparin 30 MG/0.3 ML SYR SUBCUT SCH (06:17)
[2022-01-19 09:23] LABS: ABS Eosinophils 0.2 10^3/ul (0-0.6); ABS Lymphocytes 0.8 10^3/ul (1.0-4.8); ABS Monocytes 0.4 10^3/ul (0-0.8); ABS Neutrophils 2.2 10^3/ul (1.5-7.7); Eosinophil % 5.4 %; Hematocrit 29 % (42-52); Hemoglobin 9.5 g/dL (14.0-18.0); Lymphocyte % 22.3 %; Mean Corpuscular HGB Conc 32 g/dL (31-36); Mean Corpuscular Hemoglobin 28 pg (27-31); Mean Corpuscular Volume 86 fL (80-94); Mean Platelet Volume 6.8 fL (7.4-10.4); Nucleated Red Blood Cells % 0.1; Platelet Count 190 10^3/uL (150-450); Red Blood Count 3.42 10^6 /uL (4.18-5.48); Red Cell Distribution Width 16 % (10-15); White Blood Count 3.6 10^3/uL (3.5-10.8)
[2022-01-19 09:53] LABS: Calcium 8.4 mg/dL (8.6-10.3); Potassium 4.1 mmol/L (3.5-5.0); eGFR CKD-EPI 9.2 (>60)
[2022-01-20 05:56] LABS: ABS Eosinophils 0.3 10^3/ul (0-0.6); ABS Lymphocytes 1.3 10^3/ul (1.0-4.8); ABS Monocytes 0.5 10^3/ul (0-0.8); ABS Neutrophils 2.3 10^3/ul (1.5-7.7); Eosinophil % 7.4 %; Hematocrit 28 % (42-52); Hemoglobin 8.7 g/dL (14.0-18.0); Lymphocyte % 30.1 %; Mean Corpuscular HGB Conc 32 g/dL (31-36); Mean Corpuscular Hemoglobin 27 pg (27-31); Mean Corpuscular Volume 85 fL (80-94); Mean Platelet Volume 6.8 fL (7.4-10.4); Nucleated Red Blood Cells % 0.1; Platelet Count 181 10^3/uL (150-450); Red Blood Count 3.24 10^6 /uL (4.18-5.48); Red Cell Distribution Width 16 % (10-15); White Blood Count 4.4 10^3/uL (3.5-10.8)
[2022-01-20] MEDS: Enoxaparin 30 MG/0.3 ML SYR SUBCUT SCH (06:14)
[2022-01-20 06:29] LABS: Calcium 8.2 mg/dL (8.6-10.3); Potassium 4.2 mmol/L (3.5-5.0); eGFR CKD-EPI 7.5 (>60)
[2022-01-20] MEDS: Pentafluoroprop/Tetrafluoro 1 SPRAY TOP.SPRAY TOPICAL SCH (14:33)
[2022-01-20] MEDS: Heparin 1,000 UNIT/ML 10 ml (10,000 UNITS) CATHLAB/DIALYSIS DIALYSIS PRN ×3 (14:34→16:39)
[2022-01-21] MEDS: Enoxaparin 30 MG/0.3 ML SYR SUBCUT SCH (05:27)
[2022-01-21 05:58] LABS: ABS Eosinophils 0.3 10^3/ul (0-0.6); ABS Lymphocytes 1.2 10^3/ul (1.0-4.8); ABS Monocytes 0.5 10^3/ul (0-0.8); ABS Neutrophils 2.1 10^3/ul (1.5-7.7); Eosinophil % 6.8 %; Hematocrit 29 % (42-52); Hemoglobin 9.2 g/dL (14.0-18.0); Lymphocyte % 28.7 %; Mean Corpuscular HGB Conc 32 g/dL (31-36); Mean Corpuscular Hemoglobin 28 pg (27-31); Mean Corpuscular Volume 86 fL (80-94); Mean Platelet Volume 7.3 fL (7.4-10.4); Nucleated Red Blood Cells % 0.1; Platelet Count 128 10^3/uL (150-450); Red Blood Count 3.31 10^6 /uL (4.18-5.48); Red Cell Distribution Width 17 % (10-15); White Blood Count 4.1 10^3/uL (3.5-10.8)
[2022-01-21 06:16] LABS: Calcium 8.5 mg/dL (8.6-10.3); eGFR CKD-EPI 10.1 (>60)
[2022-01-22] MEDS: Enoxaparin 30 MG/0.3 ML SYR SUBCUT SCH (05:55)
[2022-01-22] MEDS: Pentafluoroprop/Tetrafluoro 1 SPRAY TOP.SPRAY TOPICAL SCH (09:41)
[2022-01-22] MEDS: Heparin 1,000 UNIT/ML 10 ml (10,000 UNITS) CATHLAB/DIALYSIS DIALYSIS PRN ×3 (09:41→11:41)
[2022-01-23] MEDS: Enoxaparin 30 MG/0.3 ML SYR SUBCUT SCH (05:54)
[2022-01-24] MEDS: Enoxaparin 30 MG/0.3 ML SYR SUBCUT SCH (05:39)
[2022-01-24] MEDS: METOLAZONE 2.5 MG PO SCH (12:25)
[2022-01-25 05:53] LABS: ABS Eosinophils 0.4 10^3/ul (0-0.6); ABS Lymphocytes 0.9 10^3/ul (1.0-4.8); ABS Monocytes 0.3 10^3/ul (0-0.8); ABS Neutrophils 2.2 10^3/ul (1.5-7.7); Eosinophil % 9.4 %; Hematocrit 28 % (42-52); Hemoglobin 8.8 g/dL (14.0-18.0); Lymphocyte % 24.6 %; Mean Corpuscular HGB Conc 32 g/dL (31-36); Mean Corpuscular Hemoglobin 27 pg (27-31); Mean Corpuscular Volume 85 fL (80-94); Mean Platelet Volume 7.5 fL (7.4-10.4); Nucleated Red Blood Cells % 0.1; Platelet Count 126 10^3/uL (150-450); Red Blood Count 3.27 10^6 /uL (4.18-5.48); Red Cell Distribution Width 16 % (10-15); White Blood Count 3.8 10^3/uL (3.5-10.8)
[2022-01-25] MEDS: Enoxaparin 30 MG/0.3 ML SYR SUBCUT SCH (05:56)
[2022-01-25 06:41] LABS: Calcium 8.4 mg/dL (8.6-10.3); Potassium 4.4 mmol/L (3.5-5.0); eGFR CKD-EPI 7.4 (>60)
[2022-01-25] MEDS: Heparin 1,000 UNIT/ML 10 ml (10,000 UNITS) CATHLAB/DIALYSIS DIALYSIS PRN ×3 (09:45→11:36)
[2022-01-25 13:52] VITALS: BP 124/65
[2022-01-25] MEDS: METOLAZONE 2.5 MG PO SCH (14:22)
== END 2022-01-25 15:30 | disposition home or self-care (01) | DRG 194 ==
LOC: ED 17:31 → SUATTDRO 01-08 01:09 → EDHOLD 01-08 01:09 → MEDTELE 01-08 14:02 → MED 01-15 18:22
PROVIDERS: ADMIT Internal Medicine; ATTEND Internal Medicine